=== PATIENT | female | born 1980 | race Caucasian/White ===

== ENCOUNTER 2017-01-07 21:09 | Emergency (ER) | payer OTHER, MEDICAID | END 2017-01-08 00:24 | disposition home or self-care (01) | DX: O44.02 Complete placenta previa NOS or without hemorrhage, second trimester (principal); O41.02X0 Oligohydramnios, second trimester, not applicable or unspecified; Z3A.19 19 weeks gestation of pregnancy ==

== ENCOUNTER 2018-08-17 18:25 | Emergency (ER) | payer MEDICAID, OTHER ==
[2018-08-17 18:49] VITALS: BP 140/87
--- NOTE | 2018-08-17 20:11 | Ultrasound Report ---
Reason: RLE swelling Procedure Date: 08/17/2018 Accession Number: [id number] / [id number] Procedure: US - Duplex Ext Veins Right CPT Code: FULL RESULT: EXAM: RIGHT LOWER EXTREMITY VENOUS ULTRASOUND EXAM DATE: 08/17/2018 08:03 PM. CLINICAL HISTORY: RLE swelling. COMPARISON: None. TECHNIQUE: Real-time sonographic vascular imaging was performed by the interactive account manager through the lower extremity utilizing both color-flow and Doppler spectral analysis. Multiple manufacturer's service representative static images were saved for review. FINDINGS: Common Femoral Vein (CFV): Normal. CFV-GSV Junction: Normal. Profunda Femoral Vein (PFV): Normal. Femoral Vein (FV) Prox: Normal. Femoral Vein (FV) Mid: Normal. Femoral Vein (FV) Dist: Normal. Popliteal Vein: Normal. Posterior Tibial Veins: The visualized portions are within normal limits. Peroneal Veins: Not well seen. Visualized portions within normal limits. Contralateral Side CFV: Normal. Other: None. IMPRESSION: Posterior tibial and peroneal veins are not well seen. Visualized portions are within normal limits. Within the remaining deep veins of the right lower extremity, there is no evidence of occlusive thrombus. RADIA
--- NOTE | 2018-08-17 20:32 | ED Physician Documentation ---
History of Present Illness - Stated complaint Stated Complaint: SENT BY DOC-POSS [id number]/[id number] PREG - Chief complaint Chief Complaint: Ext Problem - History obtained from History obtained from: Patient - History of Present Illness Timing: Other (1.5 months) Pain level max: 5 Pain level now: 3 Improved by: nothing Worsened by: nothing - Additonal information Additional information: 15 weeks . R LE swelling for 1.5 months. nothing makes it better or worse. no abd pain. no vag bleeding. No chest pain or palpitations. Review of Systems Constitutional: denies: Fever, Chills GI: denies: Vomiting Skin: denies: Rash Musculoskeletal: denies: Neck pain, Back pain Neurologic: denies: Headache PD PAST MEDICAL HISTORY - Past Medical History Past Medical History: No Cardiovascular: None Respiratory: None Neuro: None Endocrine/Autoimmune: None GI: None CUSTOMER ACCOUNT ADMINISTRATOR: None : None HEENT: None Psych: None Musculoskeletal: None Derm: None Other Past Medical History: IVF = DUE 01-30-15/2019 DELIVERY... DEVIATED SEPTUM.. - Past Surgical History Past Surgical History: Yes /CUSTOMER ACCOUNT ADMINISTRATOR: section - Allergies Allergies/Adverse Reactions: Allergies Allergy/AdvReac Type Severity Reaction Status Date / Time No Known Drug Allergies Allergy Verified 08/17/18 18:49 - Social History Does the pt smoke?: No Smoking Status: Never smoker Does the pt drink ETOH?: No Does the pt have substance abuse?: No - Immunizations Immunizations are current?: Yes - POLST Patient has POLST: No PD ED PE NORMAL - Vitals Vital signs reviewed: Yes - General General: Alert and oriented X 3, No acute distress - HEENT HEENT: Moist mucous membranes - Neck Neck: Supple, no meningeal sign - Cardiac Cardiac: RRR, Strong equal pulses - Respiratory Respiratory: No respiratory distress, Clear bilaterally - Derm Derm: Warm and dry - Extremities Extremities: Other (mild swelling B calf. no significant tenderness. NVI) - Neuro Neuro: Alert and oriented X 3 - Psych Psych: Normal mood, Normal affect Results - Vitals Vitals: Oxygen O2 Source Room air - Rads (name of study) duplex US RLE Radiology: Prelim report reviewed, EMP read contemporaneously, See rad report (no DVT.) PD MEDICAL DECISION MAKING - ED course Complexity details: reviewed results, re-evaluated patient, considered differential, d/w patient ED course: 38 year old female with B LE swelling, R>L. NVI. normal duplex US. no DVT. no evidence of infection. Patient counseled regarding signs and symptoms for which I believe and urgent re-evaluation would be necessary. Patient with good understanding of and agreement to plan and is comfortable going home at this time This document was made in part using voice recognition software. While efforts are made to proofread this document, sound alike and grammatical errors may occur. Departure - Departure Disposition: 01 Home, Self Care Clinical Impression: Peripheral edema Condition: Good Instructions: ED Leg Swelling Unilateral Follow-Up: Meri Mensah MD [Physician No Access] - Within 1 week Comments: Your ultrasound does not show a DVT today. Return if you worsen. Follow up with your doctor for further care. Discharge Date/Time: 08/17/18 20:50
== END 2018-08-17 20:50 | disposition home or self-care (01) ==
LOC: ED 18:25
DX: O99.89 Other specified diseases and conditions complicating pregnancy, childbirth and the puerperium (principal); R60.0 Localized edema; Z3A.15 15 weeks gestation of pregnancy
CPT/HCPCS: 99283